=== PATIENT | male | born 1935 | race Caucasian/White ===

== ENCOUNTER 2018-12-19 14:29 | Emergency (ER) | payer MEDICARE, OTHER ==
[~2018-12-19] VITALS: Ht 170.2 cm; Wt 90.7 kg
[2018-12-19 15:02] VITALS: BP 165/72
[2018-12-19] MEDS ORDERED: HYDR-3164 PO (15:25)
[2018-12-19] MEDS ORDERED: ONDA4TAB12 PO (15:25)
--- NOTE | 2018-12-19 15:25 | PHYS DOC ---
Past Medical History Past Medical History: Arthritis, High Cholesterol, Hypertension Past Surgical History: Appendectomy, Other Additional Past Surgical Histo: hernia Alcohol Use: Heavy Additional Information: daily 3-4 beers Drug Use: None Adult General Chief Complaint Chief Complaint: [facility] 83-year-old very active male presents with a left shoulder injury. He states he tripped and fell at [employer] landing on his left shoulder. He says since that time he has been unable to move his left arm at the shoulder. He did not hit his head he did not lose consciousness. He states he clearly tripped he did not pass out. He had no chest pain shortness of breath palpitations prior to his fall. Currently, he states he is not having any pain as long as he keeps his arm still.[] Review of Systems Review of Systems Constitutional: Denies fever or chills [] Eyes: Denies change in visual acuity, redness, or eye pain [] HENT: Denies nasal congestion or sore throat [] Respiratory: Denies cough or shortness of breath [] Cardiovascular: No additional information not addressed in HPI [] GI: Denies abdominal pain, nausea, vomiting, bloody stools or diarrhea [] : Denies dysuria or hematuria [] Musculoskeletal: Per history of present illness[] Integument: Denies rash or skin lesions [] Neurologic: Denies headache, focal weakness or sensory changes [] Endocrine: Denies polyuria or polydipsia [] All other systems were reviewed and found to be within normal limits, except as documented in this note. Allergies Allergies Allergies Coded Allergies Type Severity Reaction Last Updated Verified No Known Drug Allergies 12/19/18 No Physical Exam Physical Exam Constitutional: Well developed, well nourished, mild distress, non-toxic appearance. [] HENT: Normocephalic, atraumatic, bilateral external ears normal, oropharynx moist, no oral exudates, nose normal. [] Eyes: PERRLA, EOMI, conjunctiva normal, no discharge. [] Neck: Normal range of motion, no tenderness, supple, no stridor. [] Cardiovascular:Heart rate regular rhythm, no murmur [] Lungs & Thorax: Bilateral breath sounds clear to auscultation [] Abdomen: Bowel sounds normal, soft, no tenderness, no masses, no pulsatile masses. [] Skin: Warm, dry, no erythema, no rash. [] Back: No tenderness, no CVA tenderness. [] Extremities: His left shoulder has some swelling there is decreased range of motion secondary to pain no obvious significant deformity good distal pulse and sensation. [] Neurologic: Alert and oriented X 3, normal motor function, normal sensory function, no focal deficits noted. [] Psychologic: Affect normal, judgement normal, mood normal. [] Current Patient Data Vital Signs Vital Signs Date Time Temp Pulse Resp B/P (MAP) Pulse Ox O2 Delivery O2 Flow Rate FiO2 12/19/18 14:29 97.7 102 16 170/73 (105) 98 Room Air 97.7 EKG EKG [] Radiology/Procedures Radiology/Procedures [] Impressions: Left shoulder x-rays proximal humerus fracture as interpreted by me Course & Med Decision Making Course & Med Decision Making Pertinent Labs and Imaging studies reviewed. (See chart for details) [ED course: Evaluation reveals an 83-year-old male with an isolated left shoulder injury. His x-ray showed a comminuted proximal left humerus fracture. Patient was placed in a sling in the department. I will provide the patient follow up with orthopedics. Dr. Santos] Radha Disclaimer Dragjavier Disclaimer This electronic medical record was generated, in whole or in part, using a voice recognition dictation system. Departure Departure Impression: Primary Impression: Proximal humerus fracture Disposition: 01 HOME, SELF-CARE Condition: STABLE Referrals: JUDY SANTOS MD He need to follow up in the next 2-3 days. Patient Instructions: Humerus Fracture, Treated with Immobilization, Shoulder Fracture (Proximal Humerus or Glenoid)-SportsMed Additional Instructions: Call Dr. Santos's office tomorrow for follow-up Scripts Ondansetron (ONDANSETRON ODT) 4 Mg Tab.rapdis 1 TAB PO PRN Q6-8HRS for VOMITING, #20 TAB Prov: BE REINOSO DO 12/19/18 Hydrocodone/Apap 5-325 (NORCO 5-325 TABLET) 1 Each Tablet 1 TAB PO PRN Q6HRS PRN for PAIN, #20 TAB 0 Refills Prov: BE REINOSO DO 12/19/18 Problem Qualifiers Primary Impression: Proximal humerus fracture Encounter type: initial encounter Fracture type: closed Fracture morphology : other fracture Fracture alignment: nondisplaced Laterality: left Qualified Codes: S42.295A - Other nondisplaced fracture of upper end of left humerus, initial encounter for closed fracture BE REINOSO DO Dec 19, 2018 15:25
--- NOTE | 2018-12-19 15:27 | RAD ---
Examination: 3 views of the left shoulder HISTORY: History of slipped on ice, fall Comparison: None available. Findings/ impression: There is mild displaced comminuted fracture of the humerus head region involving the greater tuberosity. Electronically signed by: Nicho Christianson MD (12/19/2018 3:24 PM) [id number]
== END 2018-12-19 15:39 | disposition home or self-care (01) ==
LOC: ER 14:29
DX: S42.252A Displaced fracture of greater tuberosity of left humerus, initial encounter for closed fracture (principal); M19.90 Unspecified osteoarthritis, unspecified site; E78.00 Pure hypercholesterolemia, unspecified; I10 Essential (primary) hypertension; Z90.89 Acquired absence of other organs; W01.0XXA Fall on same level from slipping, tripping and stumbling without subsequent striking against object, initial encounter; Y93.89 Activity, other specified; Y92.89 Other specified places as the place of occurrence of the external cause; Y99.8 Other external cause status
CPT/HCPCS: 73030; 99283

== ENCOUNTER 2020-11-12 11:11 | Emergency (ER) | payer MEDICARE ==
[~2020-11-12] VITALS: Ht 170.2 cm; Wt 86.7 kg
[~2020-11-12 11:11] MED LIST: ALBU2.5V8 IH; APIX2.5T PO; HYDR-3164 PO; LOSA-73 PO; ONDA4TAB12 PO; TRAZ-118 PO; [UNRECOGNIZED DRUG - CODE] PO
[2020-11-12] MEDS ORDERED: cefTRIAXone IV Push 1 GM VIAL. IVP ONE (11:45)
[2020-11-12] MEDS ORDERED: IV NORMAL SALINE 1000ML BAG 1,000 ML IV SCH (11:45)
[2020-11-12 11:50] LABS: BASO # 0.1 x10^3/uL (0.0-0.2); BASO % 1 % (0-3); EOS % 0 % (0-3); HEMATOCRIT 26.3 % (39.0-53.0); HEMOGLOBIN 8.4 g/dL (13.0-17.5); LYMPH # 2.7 x10^3/uL (1.0-4.8); LYMPH % 18 % (24-48); MEAN CORPUSCULAR HEMOGLOBIN 28 pg (25-35); MEAN CORPUSCULAR HGB CONC 32 g/dL (31-37); MEAN CORPUSCULAR VOLUME 87 fL (79-100); MONO # 0.8 x10^3/uL (0.0-1.1); MONO % 5 % (0-9); NEUT # 11.6 x10^3/uL (1.8-7.7); NEUT % 76 % (31-73); PLATELET COUNT 386 x10^3/uL (140-400); RED BLOOD COUNT 3.02 x10^6/uL (4.30-5.70); RED CELL DISTRIBUTION WIDTH 17.3 % (11.5-14.5); WHITE BLOOD COUNT 15.2 x10^3/uL (4.0-11.0)
[2020-11-12 12:08] LABS: CALCIUM 8.2 mg/dL (8.5-10.1); POTASSIUM 3.4 mmol/L (3.5-5.1)
[2020-11-12 12:10] LABS: CLARITY,URINE TURBID; COLOR,URINE RED
--- NOTE | 2020-11-12 12:15 | PHYS DOC ---
Past Medical History Past Medical History: Arthritis, High Cholesterol, Hypertension, Other Additional Past Medical Histor: COVID 19 (Aug 2020) Past Surgical History: Appendectomy, Other Additional Past Surgical Histo: hernia Smoking Status: Former Smoker Alcohol Use: Heavy Drug Use: None Adult General Chief Complaint Chief Complaint: FEVER HPI HPI Patient is a 85 year old male history of hypertension and recent COVID infection who presents with hematuria, abdominal pain and fever. Patient's daughter is bedside who gives some history. He did arrive by EMS. Patient lives at home with daughter. Patient has not been feeling well for the past 2 to 3 days. He developed hematuria yesterday. Fever of 101 this morning per daughter. Patient was diagnosed with Covid in August. He was discharged from the hospital on oxygen. Patient is currently on 4 L nasal cannula at home. He has been doing well since 2 days ago. He has had some decrease in appetite nausea. No vomiting diarrhea constipation. He has had some dysuria. Lower abdominal pain. No chest pain or shortness of breath. Has had a cough since his Covid diagnosis. Patient denies smoking. Review of Systems Review of Systems Constitutional: Denies fever or chills [] Eyes: Denies change in visual acuity, redness, or eye pain [] HENT: Denies nasal congestion or sore throat [] Respiratory: Denies cough or shortness of breath [] Cardiovascular: No additional information not addressed in HPI [] GI: Denies abdominal pain, nausea, vomiting, bloody stools or diarrhea [] : Dysuria and hematuria Musculoskeletal: Denies back pain or joint pain [] Integument: Denies rash or skin lesions [] Neurologic: Denies headache, focal weakness or sensory changes [] Endocrine: Denies polyuria or polydipsia [] All other systems were reviewed and found to be within normal limits, except as documented in this note. Current Medications Current Medications Current Medications Medications (Trade) Dose Ordered Sig/Tiffany Start Time Stop Time Status Last Admin Dose Admin Ceftriaxone Sodium (Rocephin) 1 gm 1X ONCE 11/12/20 11:45 11/12/20 11:46 DC 11/12/20 12:06 1 GM Iohexol (Omnipaque 300 Mg/ml) 75 ml 1X ONCE 11/12/20 12:30 11/12/20 12:31 DC 11/12/20 12:42 75 ML Sodium Chloride 1,000 ml @ 1,000 mls/hr Q1H 11/12/20 11:45 11/12/20 12:44 DC 11/12/20 12:03 1,000 MLS/HR Allergies Allergies Allergies Coded Allergies Type Severity Reaction Last Updated Verified No Known Drug Allergies 11/12/20 No Physical Exam Physical Exam Constitutional: Well developed, well nourished, no acute distress, non-toxic appearance. [] HENT: Normocephalic, atraumatic, bilateral external ears normal, oropharynx moist, no oral exudates, nose normal. [] Eyes: PERRLA, EOMI, conjunctiva normal, no discharge. [] Neck: Normal range of motion, no tenderness, supple, no stridor. [] Cardiovascular:Heart rate regular rhythm, no murmur [] Lungs & Thorax: Diminished breath sounds bilaterally. Abdomen: Minor lower abdominal tenderness. No tenderness, no masses, no pulsatile masses. [] Blood at the urethral meatus. Skin: Warm, dry, no erythema, no rash. [] Back: No tenderness, no CVA tenderness. [] Extremities: No tenderness, no cyanosis, no clubbing, ROM intact, no edema. [] Neurologic: Alert and oriented X 3, normal motor function, normal sensory function, no focal deficits noted. [] Psychologic: Affect normal, judgement normal, mood normal. [] Current Patient Data Vital Signs Vital Signs Date Time Temp Pulse Resp B/P (MAP) Pulse Ox O2 Delivery O2 Flow Rate FiO2 11/12/20 14:38 92 22 113/54 (73) 94 Nasal Cannula 2.0 11/12/20 11:17 98.3 98.3 Lab Values Laboratory Tests Test 11/12/20 11:30 11/12/20 11:35 Urine Collection Type Void Urine Color Red Urine Clarity Turbid Urine pH (<5.0-8.0) Urine Specific [place] (1.000-1.030) Urine Protein mg/dL (NEG-TRACE) Urine Glucose (UA) mg/dL (NEG) Urine Ketones (Stick) mg/dL (NEG) Urine Blood (NEG) Urine Nitrite (NEG) Urine Bilirubin (NEG) Urine Urobilinogen Dipstick mg/dL (0.2 mg/dL) Urine Leukocyte Esterase (NEG) Urine RBC Tntc /HPF (0-2) Urine WBC 20-40 /HPF (0-4) Urine Squamous Epithelial Cells Occ /LPF Urine Bacteria Many /HPF (0-FEW) White Blood Count 15.2 x10^3/uL (4.0-11.0) H Red Blood Count 3.02 x10^6/uL (4.30-5.70) L Hemoglobin 8.4 g/dL (13.0-17.5) L Hematocrit 26.3 % (39.0-53.0) L Mean Corpuscular Volume 87 fL (79-100) Mean Corpuscular Hemoglobin 28 pg (25-35) Mean Corpuscular Hemoglobin Concent 32 g/dL (31-37) Red Cell Distribution Width 17.3 % (11.5-14.5) H Platelet Count 386 x10^3/uL (140-400) Neutrophils (%) (Auto) 76 % (31-73) H Lymphocytes (%) (Auto) 18 % (24-48) L Monocytes (%) (Auto) 5 % (0-9) Eosinophils (%) (Auto) 0 % (0-3) Basophils (%) (Auto) 1 % (0-3) Neutrophils # (Auto) 11.6 x10^3/uL (1.8-7.7) H Lymphocytes # (Auto) 2.7 x10^3/uL (1.0-4.8) Monocytes # (Auto) 0.8 x10^3/uL (0.0-1.1) Eosinophils # (Auto) 0.0 x10^3/uL (0.0-0.7) Basophils # (Auto) 0.1 x10^3/uL (0.0-0.2) Sodium Level 137 mmol/L (136-145) Potassium Level 3.4 mmol/L (3.5-5.1) L Chloride Level 102 mmol/L (98-107) Carbon Dioxide Level 26 mmol/L (21-32) Anion Gap 9 (6-14) Blood Urea Nitrogen 7 mg/dL (8-26) L Creatinine 1.0 mg/dL (0.7-1.3) Estimated GFR (Cockcroft-Gault) 71.0 BUN/Creatinine Ratio 7 (6-20) Glucose Level 137 mg/dL (70-99) H Lactic Acid Level 1.8 mmol/L (0.4-2.0) Calcium Level 8.2 mg/dL (8.5-10.1) L Total Bilirubin 0.3 mg/dL (0.2-1.0) Aspartate Amino Transferase (AST) 21 U/L (15-37) Alanine Aminotransferase (ALT) 19 U/L (16-63) Alkaline Phosphatase 97 U/L (46-116) Total Protein 5.6 g/dL (6.4-8.2) L Albumin 2.2 g/dL (3.4-5.0) L Albumin/Globulin Ratio 0.6 (1.0-1.7) L Laboratory Tests 11/12/20 11:35 Laboratory Tests 11/12/20 11:35 Laboratory Tests Test 11/12/20 11:30 11/12/20 11:35 Urine Collection Type Void Urine Color Red Urine Clarity Turbid Urine pH Urine Specific [place] Urine Protein mg/dL Urine Glucose (UA) mg/dL Urine Ketones (Stick) mg/dL Urine Blood Urine Nitrite Urine Bilirubin Urine Urobilinogen Dipstick mg/dL Urine Leukocyte Esterase Urine RBC Tntc /HPF Urine WBC 20-40 /HPF Urine Squamous Epithelial Cells Occ /LPF Urine Bacteria Many /HPF White Blood Count 15.2 x10^3/uL Red Blood Count 3.02 x10^6/uL Hemoglobin 8.4 g/dL Hematocrit 26.3 % Mean Corpuscular Volume 87 fL Mean Corpuscular Hemoglobin 28 pg Mean Corpuscular Hemoglobin Concent 32 g/dL Red Cell Distribution Width 17.3 % Platelet Count 386 x10^3/uL Neutrophils (%) (Auto) 76 % Lymphocytes (%) (Auto) 18 % Monocytes (%) (Auto) 5 % Eosinophils (%) (Auto) 0 % Basophils (%) (Auto) 1 % Neutrophils # (Auto) 11.6 x10^3/uL Lymphocytes # (Auto) 2.7 x10^3/uL Monocytes # (Auto) 0.8 x10^3/uL Eosinophils # (Auto) 0.0 x10^3/uL Basophils # (Auto) 0.1 x10^3/uL Sodium Level 137 mmol/L Potassium Level 3.4 mmol/L Chloride Level 102 mmol/L Carbon Dioxide Level 26 mmol/L Anion Gap 9 Blood Urea Nitrogen 7 mg/dL Creatinine 1.0 mg/dL Estimated GFR (Cockcroft-Gault) 71.0 BUN/Creatinine Ratio 7 Glucose Level 137 mg/dL Lactic Acid Level 1.8 mmol/L Calcium Level 8.2 mg/dL Total Bilirubin 0.3 mg/dL Aspartate Amino Transf (AST/SGOT) 21 U/L Alanine Aminotransferase (ALT/SGPT) 19 U/L Alkaline Phosphatase 97 U/L Total Protein 5.6 g/dL Albumin 2.2 g/dL Albumin/Globulin Ratio 0.6 Current Medications Medications (Trade) Dose Ordered Sig/Tiffany Route PRN Reason Start Time Stop Time Status Last Admin Dose Admin Sodium Chloride 1,000 ml @ 1,000 mls/hr Q1H IV 11/12/20 11:45 11/12/20 12:44 DC 11/12/20 12:03 1,000 MLS/HR Ceftriaxone Sodium (Rocephin) 1 gm 1X ONCE IVP 11/12/20 11:45 11/12/20 11:46 DC 11/12/20 12:06 1 GM Iohexol (Omnipaque 300 Mg/ml) 75 ml 1X ONCE IV 11/12/20 12:30 11/12/20 12:31 DC 11/12/20 12:42 75 ML EKG EKG [] Radiology/Procedures Radiology/Procedures []EXAM: CHEST 1 VIEW History: Fever, weakness COMPARISON: 09/24/2020 TECHNIQUE: Single portable radiograph of the chest FINDINGS: Low lung volumes and technique accentuates heart size and pulmonary vascularity. Improved airspace opacity identified in the right lower lobe of the lung. Mild left lung base airspace opacities. IMPRESSION: Patchy airspace opacities identified in the bilateral lungs slightly improved in the right lung base. Differential includes atelectasis or infiltrates or atypical or viral pneumonia. Electronically signed by: Nicho Christianson MD (11/12/2020 12:33 PM) [id number] DICTATED and SIGNED BY: NICHO CHRISTIANSON MD DATE: 11/12/20 [id number] PATIENT: ROQUE RAM ACCOUNT: [id number] : 1935 LOCATION: ER AGE: 85 SEX: M EXAM STATUS: REG ER ORD. PHYSICIAN: MOISES TAY DO REASON: abdominal pain, hematuria PROCEDURE: CT ABD PELV W/ IV CONTRST ONLY Examination: CT of the abdomen pelvis with IV contrast HISTORY: History of abdominal pain, hematuria COMPARISON: None available TECHNIQUE: Axial CT images of abdomen pelvis with IV contrast. Coronal and sagittal reformats are performed. Exposure: One or more of the following individualized dose reduction techniques were utilized for this examination: 1. Automated exposure control 2. Adjustment of the mA and/or kV according to patient size 3. Use of iterative reconstruction technique FINDINGS: There are patchy airspace opacities identified in the right middle lobe and bibasilar lung airspace opacities likely atelectasis or infiltrates. Trace right pleural effusion. No evidence of free air identified in the abdomen. The liver, spleen, adrenals, pancreas grossly appears unremarkable. The gallbladder is mildly distended. The stomach is mildly distended. Small hiatal hernia. The small bowel is nondilated. Sigmoid colon diverticulosis identified. The bilateral kidneys enhance symmetrically. No evidence of hydronephrosis. Urinary bladder is mildly distended. Moderate-sized density identified in the urinary bladder which is slightly hyperdense. Silva catheter balloon identified in the urinary bladder. Moderate aortic atherosclerosis. Moderate degenerative changes lumbar spine. IMPRESSION: 1. Moderate size density identified in the urinary bladder just slightly hyperdense. Differential includes mass, thrombus. Ultrasound is recommended for further evaluation. 2. Patchy airspace opacities identified in the right middle lobe and bibasilar lung airspace opacities likely atelectasis or infiltrates. Electronically signed by: Nicho Christianson MD (11/12/2020 1:09 PM) [id number] DICTATED and SIGNED BY: NICHO CHRISTIANSON MD DATE: 11/12/20 [id number] Course & Med Decision Making Course & Med Decision Making Pertinent Labs and Imaging studies reviewed. (See chart for details) []MDM: 85-year-old male presents emergency department for fever and not feeling well. Upon arrival to the emergency department patient is nontoxic-appearing. Vital signs stable. Afebrile here in the emergency department. Patient has had some hematuria. Bladder scan revealed 400 mL in bladder. Silva catheter was placed with gross hematuria. Labs show white blood cell count of 15 with a hemoglobin of 8.4. Patient is not on any anticoagulation. Electrolytes stable. Lactic acid 1.8. Blood cultures were drawn. Patient was given Rocephin and normal saline. Urinalysis was limited secondary to gross hematuria. Despite hematuria many bacteria were seen. CT abdomen pelvis: Moderate size density in the urinary bladder. Patchy opacity in the right middle lobe and basilar lung airspace opacity. Ultrasound of the bladder shows masslike wall thickening of the urinary bladder. Bladder neoplasm versus debris. On reevaluation patient is sleeping comfortably. Family members bedside. Discussed need for admission. Patient will need urology consultation. Will need to transfer to outside facility. Spoke with patient. Request over the [facility]. Spoke with Dr. Saravia at [facility] who accepts admission for Dr. Mosqueda. At this time patient is resting comfortably. He is aware of all labs and imaging. All questions answered and patient is stable for transport. Dragon Disclaimer Dragon Disclaimer This electronic medical record was generated, in whole or in part, using a voice recognition dictation system. Departure Departure Impression: Primary Impression: Hematuria Additional Impressions: Anemia UTI (urinary tract infection) Bladder mass Disposition: 02 DC/TRF OTHER SHORT TERM HOS (Transfer to [facility]. Accepting physician Dr. Mosqueda/Dr. Saravia) Condition: STABLE Referrals: NO PCP (PCP) Problem Qualifiers MOISES TAY DO Nov 12, 2020 12:15
[2020-11-12 12:17] LABS: BACTERIA,URINE MANY /HPF (0-FEW); RBC,URINE TNTC /HPF (0-2); WBC,URINE 20-40 /HPF (0-4)
[2020-11-12 12:19] LABS: ALBUMIN 2.2 g/dL (3.4-5.0); ALBUMIN/GLOBULIN RATIO 0.6 (1.0-1.7); TOTAL BILIRUBIN 0.3 mg/dL (0.2-1.0); TOTAL PROTEIN 5.6 g/dL (6.4-8.2)
[2020-11-12] MEDS ORDERED: IOHEXOL 300 MG/ML 100ML VIAL. IV ONE (12:30)
--- NOTE | 2020-11-12 12:36 | RAD ---
EXAM: CHEST 1 VIEW History: Fever, weakness COMPARISON: 09/24/2020 TECHNIQUE: Single portable radiograph of the chest FINDINGS: Low lung volumes and technique accentuates heart size and pulmonary vascularity. Improved airspace opacity identified in the right lower lobe of the lung. Mild left lung base airspace opaciti es. IMPRESSION: Patchy airspace opacities identified in the bilateral lungs slightly improved in the rig ht lung base. Differential includes atelectasis or infiltrates or atypical or viral pneumonia. Electronically signed by: Nicho Christianson MD (11/12/2020 12:33 PM) [id number]
--- NOTE | 2020-11-12 13:11 | RAD ---
Examination: CT of the abdomen pelvis with IV contrast HISTORY: History of abdominal pain, hematuria COMPARISON: None available TECHNIQUE: Axial CT images of abdomen pelvis with IV contrast. Coronal and sagittal reformats are per formed. Exposure: One or more of the following individualized dose reduction techniques were utilized for thi s examination: 1. Automated exposure control 2. Adjustment of the mA and/or kV according to patient size 3. Use of iterative reconstruction technique FINDINGS: There are patchy airspace opacities identified in the right middle lobe and bibasilar lung airspace o pacities likely atelectasis or infiltrates. Trace right pleural effusion. No evidence of free air identified in the abdomen. The liver, spleen, adrenals, pancreas grossly appears unremarkable. The gallbladder is mildly distended. The stomach is mildly distended. Small hiatal hernia. The small bowel is nondilated. Sigmoid colon diverticulosis identified. The bilateral kidneys enhance symmetrically. No evidence of hydronephrosis. Urinary bladder is mildly distended. Moderate-sized density identified in the urinary bladder which i s slightly hyperdense. Silva catheter balloon identified in the urinary bladder. Moderate aortic atherosclerosis. Moderate degenerative changes lumbar spine. IMPRESSION: 1. Moderate size density identified in the urinary bladder just slightly hyperdense. Differential inc ludes mass, thrombus. Ultrasound is recommended for further evaluation. 2. Patchy airspace opacities identified in the right middle lobe and bibasilar lung airspace opacitie s likely atelectasis or infiltrates. Electronically signed by: Nicho Christianson MD (11/12/2020 1:09 PM) [id number]
--- NOTE | 2020-11-12 13:56 | RAD ---
INDICATION: Reason: bladder ultrasound mass vs thrombus on CT scan / Spl. Instructions: / History: COMPARISON: CT from same day FINDINGS: Focused ultrasound images are obtained through the urinary bladder. The urinary bladder is decompressed with a catheter in the lumen. There is masslike thickening of the wall surrounding this location. This measures up to about 3 cm in thickness. Masslike wall thickening of the urinary bladder IMPRESSION: * Masslike wall thickening of the urinary bladder. Could be secondary to bladder neoplasm although portion this could also be secondary to debris within the lumen of the urinary bladder. Further norm p option would include direct visualization. Electronically signed by: Curly Juan MD (11/12/2020 1:53 PM) [id number]
[2020-11-12] MEDS ORDERED: AMOX250C PO (14:48)
[2020-11-12] MEDS ORDERED: TAMS0.4C97 PO (14:48)
[2020-11-12] MEDS ORDERED: BACI1CAP6 PO (14:48)
[2020-11-12] MEDS ORDERED: TRAZ-118 PO (14:48)
[2020-11-12 17:08] VITALS: BP 104/51
== END 2020-11-12 17:43 | disposition short-term general hospital (02) ==
LOC: ER 11:11
DX: N39.0 Urinary tract infection, site not specified (principal); R31.9 Hematuria, unspecified; D64.9 Anemia, unspecified; R50.9 Fever, unspecified; N32.89 Other specified disorders of bladder; M19.90 Unspecified osteoarthritis, unspecified site; E78.00 Pure hypercholesterolemia, unspecified; I10 Essential (primary) hypertension; F10.10 Alcohol abuse, uncomplicated; Z90.89 Acquired absence of other organs; Z87.891 Personal history of nicotine dependence; Z98.890 Other specified postprocedural states
CPT/HCPCS: 36415; 51702; 71045; 74177; 76857; 80053; 81001; 83605; 85025; 87040; 87086; 96361; 96374; 99285; J0696; J7030; Q9967